=== PATIENT | female | born 1985 | race African-American/Black ===

== ENCOUNTER 2017-04-21 16:12 | Outpatient (CLI) | payer OTHER ==
[~2017-04-21] VITALS: Ht 160 cm; Wt 77.2 kg
[~2017-04-21 16:12] MED LIST: NOHOME MEDS
[2017-04-21 16:22] VITALS: Ht 160 cm; Wt 77.2 kg
[2017-04-21] MEDS ORDERED: PRENAT PO (16:24)
[2017-04-21] MEDS ORDERED: FER325 PO (16:25)
--- NOTE | 2017-04-21 16:47 | RADRPT ---
PROCEDURE: US biophysical profile. CLINICAL INDICATION: Decreased motion. TECHNIQUE: Multiple sonographic images of the uterus were obtained. The images were revi ewed on a PACS workstation. COMPARISON: No prior studies are available for comparison. FINDINGS: There is a single live intrauterine gestation. heart rate is 136 beats per minute. The position is cephalic. The placenta is anterior grade 0 with no abruption or previa. The SINDY is 18.8 cm. (Normal = 5-20 cm.) Breathing Movement: 2 Gross Body Movement: 2 Tone: 2 Qualitative Amniotic Fluid Volume: 2 TOTAL: 8 IMPRESSION: 1. The biophysical score is 8/8. RPTAT: QQ .Otto Dupree MD, MD Date Time Electronically viewed and signed by .Otto uDpree MD, on 04/21/2017 16:46 .R/
[2017-04-21 18:11] LABS: URINE BLOOD (Dip) POC Negative (NEGATIVE)
--- NOTE | 2017-04-21 18:46 | TRIAGE ---
OB Triage Datetime Report Generated by CPN: 04/21/2017 18:46 Datetime: 04/21/2017 16:31 Assessment Type: Triage Maternal Assessment Level of Consciousness: Fully Conscious DTR's/Clonus: DTRs 2+; No Clonus Headache: Denies Blurred Vision: No Respiratory Effort: Unlabored; Regular Rhythm; Equal Expansion Breath Sounds, Left: Clear and Equal Breath Sounds, Right: Clear and Equal Nausea/Vomiting: Denies RUQ Epigastric Pain: Denies Lower Extremities Edema: Bilateral Lower Extremities Degree: 1+ Upper Extremities Edema: None Facial Edema: None Fall Risk Assessment History of Falling: (0) No Secondary Diagnosis: (0) No Ambulatory Aid: (0) Bedrest/Nurse Assist IV Therapy: (0) No Gait: (0) Normal/Bedrest/Immobile Mental Status: (0) Oriented to Own Ability Fall Score: 0 Fall Risk Score Definition: No Risk: No action required Datetime: 04/21/2017 16:30 Labor Evaluation Frequency: OCCASIONAL Monitor Mode: External Duration (sec)2399: 40 Quality: Mild Pattern: Normal: <= 5 Contractions in 10 Minutes Resting Tone [place]: Relaxed Heart Rate FHR Baseline Rate: 135 Monitor Mode: External US FHR Baseline Changes: No Baseline Change Variability: Moderate 6-25 bpm Accelerations: 10X10 Decelerations: Variable Comments: APPROPRIATE FOR GA Pain Assessment Pain Scale: 0 Pain Presence: None/Denies Pain Type: N/A Datetime: 04/21/2017 16:29 EGA: 31.3 Datetime: 04/21/2017 16:26 Time of Arrival: 04/21/2017 16:00 Arrived By: Ambulatory Arrived From: [facility] Chief Complaint: decreased movements Movement: Decreased Contractions: Denies/Absent Rupture of Membranes: Denies Vaginal Bleeding: None Vaginal Discharge: Denies Recent Sexual Intercouse: Denies Abdominal Trauma: Not Applicable Patient Complaints: None Time Provider Notified: 04/21/2017 17:02 Provider Notified: DR TERRY Initial Plan: NST, P
--- NOTE | 2017-04-21 18:48 | CONS ---
Date/Time of Note Date/Time of Note DATE: 04/21/17 TIME: 18:42 Consultation Date/Type/Reason Admit Date/Time April 21, 2070 OB triage consult Reason for Consultation This patient is a 31 years old 3 para 0 1 miscarriage 1 with estimated date of confinement of June 20, 2017 which makes her 31 weeks and 3 days today. She came to triage complaining of low movement On examination she is a well-developed well-nourished lady . Her general vital signs are normal with blood pressure of 109/66, pulse rate 85 respiration 18,, and temperature 98.7 On examination of abdomen she has only occasional contractions heart tone is normal with fairly good variability no deceleration. Laboratory Tests Test 04/21/17 18:16 Bedside Urine pH (LAB) 7.0 Bedside Urine Protein (LAB) Negative Bedside Urine Glucose (UA) Negative Bedside Urine Ketones (LAB) Negative Bedside Urine Blood Negative Bedside Urine Nitrite (LAB) Negative Bedside Urine Leukocyte Esterase (L Negative Constitutional: No chills, No diaphoresis, No disoriented, No febrile, No improved, No no complaints, No other, No poor po, No requiring IVF, No requiring O2 Eyes: No discharge, No no complaints, No other, No pain, No redness, No visual change ENT: No bleeding, No congestion, No discharge, No dysphagia, No no complaints, No other, No pain, No sore throat Respiratory: No cough, No no complaints, No other, No pain, No pleuritic pain, No shortness of breath, No sputum, No wheezing Cardiovascular: No chest pain, No edema, No lightheadedness, No no complaints, No orthopenea, No other, No palpitations, No paroxysmal nocturnal dyspnea Gastrointestinal: No blood, No constipation, No decreased appetite, No diarrhea , No flatus, No nausea, No no complaints, No other, No pain, No passing stool, No vomiting Genitourinary: other (Pelvic examination was not performed due to the fact that she did not have much of the contractions), No bleeding, No discharge, No dysuria, No flank pain, No hematuria, No no complaints Musculoskeletal: other (Knee-jerk reflexes normal), No back pain, No bone/joint pain, No neck pain, No no complaints, No restricted range of motion, No swelling Skin: No bruising, No erythema, No laceration, No no complaints, No other, No pruritis, No rash, No skin lesions Neurologic: No confusion, No dizziness, No focal-weakness, No headache, No no complaints, No other, No seizure, No syncope Endocrine: No dry skin, No no complaints, No other, No polydypsia, No polyuria , No temp intolerance Additional Comments We did an ultrasound study the report was a single live intrauterine gestation with heartbeat of 136/min placenta was anterior and the SINDY was 18.8 her biophysical profile was reported 05/17 Disposition;with these positive finding reassurance given to the patient and she was discharged home to be followed in the clinic and to return in triage in case of active labor or rupture of membrane. End of dictation Social History Smoking Status: Current some day smoker Exam/Review of Systems Results Results 24 hrs Laboratory Tests Test 04/21/17 18:16 Bedside Urine pH (LAB) 7.0 Bedside Urine Protein (LAB) Negative Bedside Urine Glucose (UA) Negative Bedside Urine Ketones (LAB) Negative Bedside Urine Blood Negative Bedside Urine Nitrite (LAB) Negative Bedside Urine Leukocyte Esterase (L Negative MADELINE ISAACS MD Apr 21, 2017 18:48
== END 2017-04-21 18:24 | disposition home or self-care (01) ==
LOC: OBT 16:12 → L-D 16:13 → OBT 18:24
PROVIDERS: ATTEND Obstetrics & Gynecology
DX: O36.8130 Decreased fetal movements, third trimester, not applicable or unspecified (principal); Z3A.33 33 weeks gestation of pregnancy
CPT/HCPCS: 76818; 81003; Z7500; G0463

== ENCOUNTER 2017-06-04 09:44 | Outpatient (CLI) | payer OTHER ==
[~2017-06-04] VITALS: Ht 160 cm; Wt 83.5 kg
[2017-06-04 09:30] VITALS: BMI 32.6
[~2017-06-04 09:44] MED LIST changes: +FER325 PO; +PRENAT PO
--- NOTE | 2017-06-04 10:39 | RADRPT ---
PROCEDURE: US OB biophysical profile. CLINICAL INDICATION: decreased movements, PIH TECHNIQUE: Multiple sonographic images of the pelvis were obtained. The images were reviewed on a PACS workstation. COMPARISON: No prior studies are available for comparison. FINDINGS: There is a single viable intrauterine gestation. Cardiac activity is present with 131 beats per min [employer] [place] [place]. There is a vertex presentation. The placenta is anterior. There is no evidence of placental abruption. There is a normal amount of amniotic fluid with an SINDY = 13.3 cm. Biophysical profile: movement 2/2 tone 2/2. breathing 2/2 SINDY 2/2 Total 05/17 RPTAT: AA . IMPRESSION: Normal biophysical profile. . .Jesse Byrd MD, Date Time Electronically viewed and signed by .Jesse Byrd MD, MD on 06/04/2017 10:39 .S/
--- NOTE | 2017-06-04 10:42 | RADRPT ---
PROCEDURE: US OB. CLINICAL INDICATION: Size and dates TECHNIQUE: Multiple sonographic images of the pelvis and gravid uterus were obtained. The images were reviewed on a PACS workstation. COMPARISON: US PELVIS 06/04/2017 FINDINGS: There is a single viable intrauterine gestation. Cardiac activity is present with 152 beats per min [place]. There is a vertex presentation. The placenta is anterior. There is no evidence of placental abruption. There is a normal amount of amniotic fluid with an SINDY = 13.3 cm. Measurements were made in order to determine age. The results are as follows: BPD =9.0 cm HC =33.3 cm AC =36.3 cm FL =7.1 cm Estimated gestational age of approximately 37 weeks and 6 days based on ultrasound measurements. Clinical age: 37 weeks and 5 days. The estimated date of delivery is 06/19/17, based on ultrasound measurements. The EFW = 3565 g, 83.1%, based on LMP age. RPTAT: AA IMPRESSION: Single viable intrauterine gestation of approximately 37 weeks and 6 days based on ultrasound measu rements. .Jesse Byrd MD, MD Date Time Electronically viewed and signed by .Jesse Byrd MD, MD on 06/04/2017 10:42 .S/
[2017-06-04 10:54] LABS: BASOPHILS % 0.3 % (0.0-2.0); EOSINOPHILS # 0.3 10^3/ul (0.0-0.5); EOSINOPHILS % 2.6 % (0.0-7.0); HEMATOCRIT 29.3 % (37.0-47.0); HEMOGLOBIN 9.9 g/dl (12.0-16.0); LYMPHOCYTES # 1.9 10^3/ul (0.8-2.9); LYMPHOCYTES % 19.7 % (15.0-51.0); MEAN CORPUSCULAR HEMOGLOBIN 30.8 pg (29.0-33.0); MEAN CORPUSCULAR HGB CONC 33.8 g/dl (32.0-37.0); MEAN CORPUSCULAR VOLUME 91.3 fl (82.0-101.0); MEAN PLATELET VOLUME 10.3 fl (7.4-10.4); MONOCYTE # 0.9 10^3/ul (0.3-0.9); MONOCYTES % 9.5 % (0.0-11.0); NEUTROPHILS % 66.7 % (39.0-77.0); PLATELET COUNT 273 10^3/UL (140-415); RED BLOOD COUNT 3.21 10^6/ul (4.20-5.40); RED CELL DISTRIBUTION WIDTH 13.2 % (11.5-14.5); WHITE BLOOD COUNT 9.7 10^3/ul (4.8-10.8)
[2017-06-04 11:07] LABS: ADD UMIC YES; UR ASCORBIC ACID NEGATIVE (NEGATIVE); UR BACTERIA FEW /HPF (NONE SEEN); UR BILIRUBIN (Dip) NEGATIVE (NEGATIVE); UR BLOOD (Dip) NEGATIVE (NEGATIVE); UR CLARITY CLOUDY (CLEAR); UR COLOR YELLOW (YELLOW); UR GLUCOSE (Dip) NEGATIVE (NEGATIVE); UR KETONES (Dip) NEGATIVE (NEGATIVE); UR LEUKOCYTE ESTERASE (Dip) 1+ Leu/ul (NEGATIVE); UR MUCUS FEW /HPF (NONE SEEN); UR NITRITE (Dip) NEGATIVE (NEGATIVE); UR RBC 7 /HPF (0-5); UR SPECIFIC GRAVITY (Dip) 1.011 (1.003-1.030); UR SQUAMOUS EPITHELIAL CELL FEW /HPF (FEW); UR TOTAL PROTEIN (Dip) NEGATIVE (NEGATIVE); UR UROBILINOGEN (Dip) NEGATIVE (NEGATIVE)
--- NOTE | 2017-06-04 11:13 | PN ---
Triage Information Date/Time Reason for visit: Weeks of Gestation 37 +5 wks ga /Para Diabetes: none Hypertention: induced Additional information Patient is here to R/O PIH Objective Heart Rate: 140's Contractions: None Results/Medications Results 24 hrs Laboratory Tests Test 06/04/17 10:14 White Blood Count Pending Red Blood Count Pending Hemoglobin Pending Hematocrit Pending Mean Corpuscular Volume Pending Mean Corpuscular Hemoglobin Pending Mean Corpuscular Hemoglobin Concent Pending Red Cell Distribution Width Pending Platelet Count Pending Mean Platelet Volume Pending Imaging Results PROCEDURE: US OB biophysical profile. CLINICAL INDICATION: decreased movements, PIH TECHNIQUE: Multiple sonographic images of the pelvis were obtained. The images were reviewed on a PACS workstation. COMPARISON: No prior studies are available for comparison. FINDINGS: There is a single viable intrauterine gestation. Cardiac activity is present with 131 beats per minute. There is a vertex presentation. The placenta is anterior. There is no evidence of placental abruption. There is a normal amount of amniotic fluid with an SINDY = 13.3 cm. Biophysical profile: movement 2/2 tone 2/2. breathing 2/2 SINDY 2/2 Total 05/17 RPTAT: AA . IMPRESSION: Normal biophysical profile. . .Jesse Byrd MD, Date Time Electronically viewed and signed by .Jesse Byrd MD, on 06/04/2017 10: 39 .S/ CC: ENRRIQUE TERRY MD PROCEDURE: US OB. CLINICAL INDICATION: Size and dates TECHNIQUE: Multiple sonographic images of the pelvis and gravid uterus were obtained. The images were reviewed on a PACS workstation. COMPARISON: US PELVIS 06/04/2017 FINDINGS: There is a single viable intrauterine gestation. Cardiac activity is present with 152 beats per minute. There is a vertex presentation. The placenta is anterior. There is no evidence of placental abruption. There is a normal amount of amniotic fluid with an SINDY = 13.3 cm. Measurements were made in order to determine age. The results are as follows: BPD = 9.0 cm HC = 33.3 cm AC = 36.3 cm FL = 7.1 cm Estimated gestational age of approximately 37 weeks and 6 days based on ultrasound measurements. Clinical age: 37 weeks and 5 days. The estimated date of delivery is 06/19/17, based on ultrasound measurements. The EFW = 3565 g, 83.1%, based on LMP age. RPTAT: AA IMPRESSION: Single viable intrauterine gestation of approximately 37 weeks and 6 days based on ultrasound measurements. .Jesse Byrd MD, MD Date Time Electronically viewed and signed by .Jesse Byrd MD, MD on 06/04/2017 10: 42 Disposition: Discharge Assessment/Plan Patient was given instructions to obtain 24 hour urine protein collection She should return to triage tomorrow after the completion of 24 hour urine for repeat NST and biophysical profile ROSALIO GRAVES MD Jun 04, 2017 11:06
[2017-06-04 11:27] LABS: ALBUMIN 2.7 g/dl (3.3-4.9); ALBUMIN/GLOBULIN RATIO 1.03; CALCIUM 9.4 mg/dl (8.4-10.2); CREATININE 0.42 mg/dl (0.44-1.00); POTASSIUM 4.3 mmol/L (3.5-5.1); TOTAL PROTEIN 5.3 g/dl (6.1-8.1)
[2017-06-04 11:58] LABS: INR 0.87; PROTIME 11.8 Sec (12.2-14.2); PT RATIO 0.9
[2017-06-04 12:58] VITALS: Ht 160 cm; Wt 83.5 kg
== END 2017-06-04 13:15 | disposition home or self-care (01) ==
LOC: OBT 09:44 → L-D 09:45 → OBT 13:15
PROVIDERS: ATTEND Obstetrics & Gynecology
DX: O13.3 Gestational [pregnancy-induced] hypertension without significant proteinuria, third trimester (principal); Z3A.37 37 weeks gestation of pregnancy
CPT/HCPCS: 76815; 76818; 80053; 81001; 84560; 85025; 85384; 85610; 85730; G0463

== ENCOUNTER 2017-06-05 18:39 | Inpatient (IN) | payer OTHER ==
[~2017-06-05] VITALS: Ht 160 cm; Wt 84.0 kg
[~2017-06-05 18:39] MED LIST changes: -NOHOME MEDS
[2017-06-05 18:58] VITALS: Ht 160 cm; Wt 84.0 kg
[2017-06-05 19:02] LABS: BASOPHILS % 0.3 % (0.0-2.0); EOSINOPHILS # 0.2 10^3/ul (0.0-0.5); EOSINOPHILS % 2.4 % (0.0-7.0); HEMATOCRIT 31.2 % (37.0-47.0); HEMOGLOBIN 10.9 g/dl (12.0-16.0); LYMPHOCYTES # 1.9 10^3/ul (0.8-2.9); LYMPHOCYTES % 19.5 % (15.0-51.0); MEAN CORPUSCULAR HEMOGLOBIN 31.5 pg (29.0-33.0); MEAN CORPUSCULAR HGB CONC 34.9 g/dl (32.0-37.0); MEAN CORPUSCULAR VOLUME 90.2 fl (82.0-101.0); MEAN PLATELET VOLUME 10.3 fl (7.4-10.4); MONOCYTE # 0.7 10^3/ul (0.3-0.9); MONOCYTES % 7.4 % (0.0-11.0); NEUTROPHILS % 69.2 % (39.0-77.0); PLATELET COUNT 308 10^3/UL (140-415); RED BLOOD COUNT 3.46 10^6/ul (4.20-5.40); RED CELL DISTRIBUTION WIDTH 13.6 % (11.5-14.5); WHITE BLOOD COUNT 9.7 10^3/ul (4.8-10.8)
[2017-06-05 19:21] LABS: ALBUMIN 3.3 g/dl (3.3-4.9); ALBUMIN/GLOBULIN RATIO 0.97; CALCIUM 9.6 mg/dl (8.4-10.2); CREATININE 0.67 mg/dl (0.44-1.00); TOTAL PROTEIN 6.7 g/dl (6.1-8.1)
[2017-06-05 19:38] LABS: SCRET 0.67 mg/dl (0.44-1.00)
--- NOTE | 2017-06-05 19:51 | RADRPT ---
PROCEDURE: Obstetrical ultrasound for biophysical profile CLINICAL INDICATION: Biophysical profile. . TECHNIQUE: Obstetrical ultrasound of the uterus for biophysical profile. Transabdominal views are obtained. COMPARISON: 06/04/2017 FINDINGS: Single intrauterine gestation. Presentation: Cephalic. Placenta: Anterior. No evidence of placental abruption. No evidence of placenta previa. breathing movement = 2/2 tone = 2/2 motion = 2/2 SINDY = 2/2 SINDY = 12.7 cm heart rate: 133 beats per minute IMPRESSION: Single intrauterine gestation. Biophysical profile 05/17 RPTAT: AADD .Ayo Brewster MD, MD Date Time Electronically viewed and signed by .Ayo Brewster MD, on 06/05/2017 19:50 .B/
--- NOTE | 2017-06-05 23:10 | HP ---
Date/Time of Note Date/Time of Note DATE: 06/05/17 TIME: 23:04 OB - History Hx of Present Chief Complaint: High blood pressure Estimated Due Date: Jun 20, 2017 : 3 Para: 0 Spontaneous : 2 Therapeutic : 0 Care: Other ( records not available at this time) Obstetrical Complications: None Medical Complications: None Past Family/Social History * Past Medical, Surgical, Family and Obstetric Histories reviewed from chart. OB Admission Exam Physical Exam HEENT: WNL Heart: Rhythm Normal Lungs: Clear, Equal Abdomen: WNL Extremities: Edema Reflexes: Normal Membranes: Intact Heart Rate: 150's Accelerations: Accelerations Present Decelerations: No Decelerations Varibility: Moderate Last 72 hours Lab Results CBC & BMP 06/05/17 18:51 Liver Function Test 06/05/17 18:51 Alanine Aminotransferase (ALT/SGPT) 27 Albumin 3.3 Alkaline Phosphatase 131 H Aspartate Amino Transf (AST/SGOT) 18 Direct Bilirubin 0.00 Total Protein 6.7 # OB Assessment/Plan Other Assessment: Preeclampsia Plan: Other Other plan: Monitor BP. Obtain preneat records. Once KAYLA is confirmed, consider induction of labor. MELANI CRAWLEY MD Jun 05, 2017 23:10
[2017-06-05] MEDS ORDERED: LIDOCAINE 1% (MPF) 30 ML INJ INJ PRN (23:30)
[2017-06-05] MEDS ORDERED: MISOPROSTOL 200 MCG TAB PR PRN (23:30)
[2017-06-05] MEDS ORDERED: BUTORPHANOL 2 MG INJ IV PRN (23:30)
[2017-06-05] MEDS ORDERED: OXYTOCIN 30 UNITS/LR 500 ML IV PRN (23:30)
[2017-06-05] MEDS ORDERED: CARBOPROST 250 MCG INJ IM PRN (23:30)
[2017-06-05] MEDS ORDERED: OXYTOCIN 30 UNITS/LR 500 ML IV SCH ×2 (23:30)
[2017-06-05] MEDS ORDERED: METHYLERGONOVINE 0.2 MG INJ IM PRN (23:30)
[2017-06-05] MEDS ORDERED: LACTATED RINGER'S 1,000 ML IV PRN (23:30)
[2017-06-05] MEDS ORDERED: IBUPROFEN 600 MG TAB PO PRN (23:30)
--- NOTE | 2017-06-05 23:58 | TRIAGE ---
OB Triage Datetime Report Generated by CPN: 06/05/2017 23:58 Datetime: 06/04/2017 17:25 Vaginal Exam Dilatation (cms): 1.5 Effacement (%): 50 Station: -3 Exam By: ESTRELITA RNC Membrane Status: Intact Cervix, Consistency: Moderate Cervix, Position: Posterior Datetime: 06/04/2017 11:49 Monitor Mode: External Heart Rate FHR Baseline Rate: 130 Monitor Mode: External US FHR Baseline Changes: No Baseline Change Variability: Moderate 6-25 bpm Accelerations: 15X15 Decelerations: None Category: Category I Datetime: 06/04/2017 10:30 Labor Evaluation Frequency: 0 Monitor Mode: External Resting Tone [place]: Relaxed Heart Rate FHR Baseline Rate: 130 Monitor Mode: External US FHR Baseline Changes: No Baseline Change Variability: Moderate 6-25 bpm Accelerations: 15X15 Decelerations: None Category: Category I Datetime: 06/04/2017 09:30 Stage of : Antepartum Temperature Route: Oral Pain Assessment Pain Scale: 0 Pain Presence: None/Denies Datetime: 06/04/2017 09:29 Labor Evaluation Frequency: 0 Monitor Mode: External Resting Tone [place]: Relaxed Heart Rate FHR Baseline Rate: 140 Monitor Mode: External US FHR Baseline Changes: No Baseline Change Variability: Moderate 6-25 bpm Accelerations: 15X15 Decelerations: None Category: Category I Datetime: 06/04/2017 09:26 Assessment Type: Triage Maternal Assessment Level of Consciousness: Fully Conscious DTR's/Clonus: DTRs 2+; No Clonus Headache: Denies Blurred Vision: No Respiratory Effort: Unlabored; Regular Rhythm; Equal Expansion Breath Sounds, Left: Clear and Equal Breath Sounds, Right: Clear and Equal Nausea/Vomiting: Denies RUQ Epigastric Pain: Denies Lower Extremities Edema: None Degree: None Upper Extremities Edema: None Facial Edema: None Fall Risk Assessment History of Falling: (0) No Secondary Diagnosis: (0) No Ambulatory Aid: (0) Bedrest/Nurse Assist IV Therapy: (0) No Gait: (0) Normal/Bedrest/Immobile Mental Status: (0) Oriented to Own Ability Fall Score: 0 Fall Risk Score Definition: No Risk: No action required Datetime: 06/04/2017 09:15 Stage of : OB Triage Assessment Type: Triage Maternal Assessment Level of Consciousness: Fully Conscious DTR's/Clonus: DTRs 2+; No Clonus Headache: Denies Blurred Vision: No Respiratory Effort: Unlabored; Regular Rhythm; Equal Expansion Breath Sounds, Left: Clear and Equal Breath Sounds, Right: Clear and Equal Nausea/Vomiting: Denies RUQ Epigastric Pain: Denies Lower Extremities Edema: None Degree: None Upper Extremities Edema: None Degree: None Facial Edema: None Temperature Route: Axillary Fall Risk Assessment History of Falling: (0) No Secondary Diagnosis: (0) No Ambulatory Aid: (0) Bedrest/Nurse Assist IV Therapy: (0) No Gait: (0) Normal/Bedrest/Immobile Mental Status: (0) Oriented to Own Ability Fall Score: 0 Fall Risk Score Definition: No Risk: No action required Datetime: 06/04/2017 08:59 Time of Arrival: 06/04/2017 08:59 EGA: 37.5 Chief Complaint: FOR 24 HR URINE COLLECTION BROUGHT FROM HOME Movement: Present Contractions: Irregular Rupture of Membranes: Denies Vaginal Bleeding: None Vaginal Discharge: Denies Recent Sexual Intercouse: Denies Abdominal Trauma: Not Applicable Patient Complaints: None Initial Plan: EFM,PIH LABS,UA,BPP.EFW Datetime: 04/21/2017 17:30 Labor Evaluation Frequency: OCCASIONAL Monitor Mode: External Duration (sec)2399: 40 Quality: Mild Pattern: Normal: <= 5 Contractions in 10 Minutes Resting Tone [place]: Relaxed Heart Rate FHR Baseline Rate: 130 Monitor Mode: External US FHR Baseline Changes: No Baseline Change Variability: Moderate 6-25 bpm Accelerations: 15X15 Decelerations: None Category: Category I Datetime: 04/21/2017 16:31 Fall Score: 0 Fall Risk Score Definition: No Risk: No action required Datetime: 04/21/2017 16:29 EGA: 31.3
[2017-06-06] MEDS: LACTATED RINGER'S 1,000 ML IV SCH ×4 (00:55→21:51)
[2017-06-06 00:58] LABS: INR 0.84; PARTIAL THROMBOPLASTIN TIME 27.7 Sec (25.0-35.0); PROTIME 11.5 Sec (12.2-14.2); PT RATIO 0.9
[2017-06-06 05:37] LABS: BARBITURATES Negative (NEGATIVE); BENZODIAZEPINES Negative (NEGATIVE); CANNABINOIDS Negative (NEGATIVE); COCAINE Negative (NEGATIVE); OPIATES Negative (NEGATIVE)
[2017-06-06] MEDS ORDERED: DINOPROSTONE 10 MG VAG SUPP VAG ONE (10:00)
[2017-06-06 21:14] LABS: BASOPHILS % 0.3 % (0.0-2.0); EOSINOPHILS # 0.2 10^3/ul (0.0-0.5); HEMATOCRIT 30.4 % (37.0-47.0); HEMOGLOBIN 10.4 g/dl (12.0-16.0); LYMPHOCYTES # 1.7 10^3/ul (0.8-2.9); LYMPHOCYTES % 11.8 % (15.0-51.0); MEAN CORPUSCULAR HEMOGLOBIN 30.9 pg (29.0-33.0); MEAN CORPUSCULAR HGB CONC 34.2 g/dl (32.0-37.0); MEAN CORPUSCULAR VOLUME 90.2 fl (82.0-101.0); MEAN PLATELET VOLUME 10.5 fl (7.4-10.4); MONOCYTE # 1.1 10^3/ul (0.3-0.9); MONOCYTES % 7.7 % (0.0-11.0); NUCLEATED RED BLOOD CELLS% 0.1 /100WBC (0.0-0.0); PLATELET COUNT 286 10^3/UL (140-415); RED BLOOD COUNT 3.37 10^6/ul (4.20-5.40); RED CELL DISTRIBUTION WIDTH 13.5 % (11.5-14.5); WHITE BLOOD COUNT 14.3 10^3/ul (4.8-10.8)
[2017-06-06 21:36] LABS: ALBUMIN 3.1 g/dl (3.3-4.9); ALBUMIN/GLOBULIN RATIO 1.03; BILIRUBIN,INDIRECT 0.1 mg/dl (0-1.1); BILIRUBIN,TOTAL 0.1 mg/dl (0.2-1.3); CREATININE 0.42 mg/dl (0.44-1.00); POTASSIUM 3.9 mmol/L (3.5-5.1); TOTAL PROTEIN 6.1 g/dl (6.1-8.1); URIC ACID 4.3 mg/dl (3.1-7.9)
[2017-06-07] MEDS: LACTATED RINGER'S 1,000 ML IV SCH ×3 (04:57→19:52)
[2017-06-07] MEDS ORDERED: METHYLERGONOVINE 0.2 MG INJ ONE (07:00)
[2017-06-07] MEDS ORDERED: OXYTOCIN 30 UNITS/LR 500 ML IV SCH ×2 (11:30→21:00)
--- NOTE | 2017-06-07 11:48 | PN ---
Date/Time of Note Date/Time of Note DATE: 06/06/17 TIME: 11:39 OB Subjective Subjective Subjective 06/06/17 PATIENT WAS ADMITTED FOR MILD PREECLAMPSIA AND FOR INDUCTION OF LABOR AT THIS TIME. SHE IS STABLE AT TERM CERVIDIL WAS APPLIED DUE TO POOR PENNY SCORE ENRRIQUE TERRY MD Jun 07, 2017 11:48
--- NOTE | 2017-06-07 11:50 | PN ---
Date/Time of Note Date/Time of Note DATE: 06/07/17 TIME: 11:48 OB Subjective Subjective Subjective DOING WELL BP NOT ELEVATED NO SYMPTOMS OF HEADACHES, DIZZINESS NOR EPIGASTRIC PAIN. NO LEG EDEMA. PATIENT HAD PROTEINURIA. PROGRESSING SLOWLY, NOW ON PITOCIN CERVIX I CM -2 STATION MB INTACT CEPHALIC ENRRIQUE TERRY MD Jun 07, 2017 11:50
[2017-06-07] MEDS ORDERED: MAGNESIUM SULFATE 4 GM/100 ML 100 ML ONE (20:47)
--- NOTE | 2017-06-07 20:59 | OPR ---
Date/Time of Note Date/Time of Note DATE: 06/07/17 TIME: 20:57 Operative Report Procedure Date: Jun 07, 2017 Preoperative Diagnosis 38 WEEKS PREECLAMPSIA NO PROGRESS OF LABOR Postoperative Diagnosis SAME Operation Performed PRIMARY LOW SEGMENT TRANSVERSE C/S Surgeon: ENRRIQUE TERRY MD Sheep Shearer: CONRADO MEMBRENO MD Anesthesiologist: SIDNEY PATEL VERONICA MD Jun 07, 2017 20:59
[2017-06-07] MEDS ORDERED: METHYLERGONOVINE 0.2 MG TAB PO PRN (21:00)
[2017-06-07] MEDS ORDERED: OXYTOCIN 30 UNITS/LR 500 ML IV PRN ×2 (21:00)
[2017-06-07] MEDS ORDERED: CARBOPROST 250 MCG INJ IM PRN ×2 (21:00)
[2017-06-07] MEDS ORDERED: ACETAMINOPHEN 325 MG TAB PO PRN (21:00)
[2017-06-07] MEDS ORDERED: METHYLERGONOVINE 0.2 MG INJ IM PRN ×2 (21:00)
[2017-06-07] MEDS ORDERED: LANOLIN 7 GM TUBE TOP PRN (21:00)
[2017-06-07] MEDS ORDERED: MISOPROSTOL 200 MCG TAB PR PRN ×2 (21:00)
[2017-06-07] MEDS ORDERED: MAGNESIUM SULFATE 4 GM/100 ML 100 ML IVPB ONE (21:00)
[2017-06-07] MEDS ORDERED: LABETALOL HCL 20MG INJ IV PRN (21:00)
[2017-06-07] MEDS: CEFAZOLIN 2 GM/50 ML (PMX) 50 ML IV SCH (21:00)
[2017-06-07] MEDS ORDERED: MAGNESIUM SULFATE 20 GM/500 ML 500 ML IV SCH ×2 (21:00→21:30)
[2017-06-07] MEDS ORDERED: NA PHOSPHATE/BIPHOS 133 ML ENEMA PR PRN (21:00)
[2017-06-07] MEDS ORDERED: CEFAZOLIN 2 GM/50 ML (PMX) 50 ML IV SCH (21:00)
[2017-06-07] MEDS: MAGNESIUM SULFATE 20 GM/500 ML 500 ML IV SCH (21:25)
[2017-06-07] MEDS ORDERED: KETOROLAC 30 MG INJ IV PRN ×3 (21:30→22:00)
[2017-06-07] MEDS ORDERED: KETOROLAC 30 MG INJ IV SCH (21:30)
[2017-06-07] MEDS: LABETALOL 100 MG TAB PO SCH ×2 (21:30)
[2017-06-07] MEDS ORDERED: MAGNESIUM SULFATE 1 GM/D5W 100 ML IVPB SCH (21:30)
[2017-06-07] MEDS ORDERED: FENTAnyl 50 MCG/ML VIAL IV PRN ×2 (22:00)
[2017-06-07] MEDS ORDERED: HYDROmorphONE (0.2 MG/ML) 10ML SYG IV PRN ×3 (22:00)
[2017-06-07] MEDS ORDERED: DIPHENHYDRAMINE 50 MG INJ IV PRN ×2 (22:00)
[2017-06-07] MEDS ORDERED: HYDROmorphONE 1 MG/ML SYG IV PRN ×2 (22:00)
[2017-06-07] MEDS ORDERED: MEPERIDINE 25 MG INJ IV PRN (22:00)
[2017-06-07] MEDS ORDERED: ONDANSETRON 4 MG INJ IV PRN ×2 (22:00)
[2017-06-07] MEDS ORDERED: METOCLOPRAMIDE 10 MG INJ IV PRN (22:00)
[2017-06-07] MEDS ORDERED: IBUPROFEN 800 MG TAB PO SCH (22:00)
[2017-06-07] MEDS ORDERED: NALOXONE (0.4 MG/ML) INJ IV PRN (22:00)
--- NOTE | 2017-06-07 22:08 | PREOPHP ---
DATE OF ADMISSION: 06/05/2017 HISTORY OF PRESENT ILLNESS: This is a 31 years old Black female, 3, para 0, 1, 1, and 1 ectopic with no vaginal deliveries, EDC was 06/20/2017. 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 She has tried cocaine as well only once. She stopped everything after the first trimester. 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 She otherwise had an uneventful and she gained about 25 pounds since she was admitted in my practice and she came in the second trimester. This patient had a normal 3 hour GTT. She was slightly anemic at the beginning that got better after the treatments with iron. She was admitted over the weekend while I was away back due to preeclampsia with proteinuria of over 500 with blood pressures that were at the beginning about 110/60, now what 144/86, with mild preeclampsia. She had no headaches. No dizziness. No epigastric pain. She was becoming swollen with edema. Normal reflexes. She was being induced for 36 hours with no progress of the dilatation of the cervix or progress of descent of the presentation. An ultrasound revealed the baby being about 7 pounds. The problem is the patient is not progressing with the cervical dilatation. After many hours of labor she is only 1 cm with effacement that is 80 percent, -2. The patient was offered a section because the blood pressure started climbing up to 144/86, and not being even active. For no progress of labor and mild preeclampsia we decided to put her on magnesium sulfate and to deliver her by section. PAST MEDICAL HISTORY: She has had the female circumcision and ethanol abuse. Smoking as well. ALLERGIES: SHE IS NOT ALLERGIC TO ANY MEDICATION. SOCIAL HISTORY: She has not drink at this time during the time that she had been admitted in my practice. FAMILY HISTORY: Father with hypertension. PHYSICAL EXAMINATION: VITAL SIGNS: The patient is conscious, stable. Weight is 185 pounds. Blood pressure 124/86. HEAD AND NECK: Normal. CHEST: Clear. HEART: Normal sinus rhythm. LUNGS: Clear. BREASTS: Soft, nontender no masses. ABDOMEN: Soft. UTERUS: Uterus at term. PELVIC: Normal external genitalia. The scar tissue around the external genitalia were there is absent clitoris and scar tissue. The cervix is 1 cm, 70 percent effaced, -2. Membranes intact. EXTREMITIES: Normal. The reflexes are 2 plus leg edema. DIAGNOSES: 1. 38 weeks . 2. Mild preeclampsia 3. No progress of induction of labor. 4. Previous female circumcision. PLAN: She is undergoing a primary section. She has been advised of the possible risks and possible complications of the procedure with alternatives and options. Written information was provided. She had no more questions, and agreed to go ahead with the procedure with full understanding and no more questions. Dictated By: Charlotte Santa MD /marla/ashley /Document#: [id number]
[2017-06-07] MEDS ORDERED: morphine SULFATE/PF (10 MG/10 ML) INJ ONE (23:01)
[2017-06-07] MEDS ORDERED: PHENYLephrine (100 MCG/ML) 5ML SYG ONE ×2 (23:02→23:33)
[2017-06-08] VITALS (19 sets, daily range): BP systolic 96–144; BP diastolic 57–87; PULSE 74–98; RESP 17–19
[2017-06-08] MEDS: OXYTOCIN 30 UNITS/LR 500 ML IV SCH ×5 (00:44→20:59)
--- NOTE | 2017-06-08 01:20 | OPR ---
DATE OF OPERATION: 06/07/2017 PREOPERATIVE DIAGNOSIS: Term with preeclampsia, no progress of labor. POSTOPERATIVE DIAGNOSIS: Term with preeclampsia, no progress of labor. PROCEDURE: Primary low segment transverse section. SURGEON: Charlotte Santa MD ANESTHESIOLOGIST: Temo Buitrago MD ANESTHESIA: Spinal. DESCRIPTION OF PROCEDURE: The patient was given a spinal anesthesia, placed in the supine position. The abdomen was prepped and draped and a Snyder catheter was placed in the bladder. A transverse incision was made 2 cm above the pubic bone. The abdomen was opened in layers without difficulty. The abdominal cavity was reached. The lower uterine segment was identified and a bladder flap was made, then we use the Riley retractor. The uterus was opened in the midline. The incision was increased laterally on either side for about 3 inches. The baby's head was delivered, followed by the body. There was a cord around the neck that was tight and it was passed over the head. The baby was delivered was, it was a baby girl. score of 9. The cord was clamped and cut. The baby was handed over to the neonatology team. The cord blood was obtained and the placenta was removed. The uterus was swabbed out and closed in 2 layers using number 1 Monocryl continuous suture imbedding the first line of suture and hemostasis was good. Interrupted sutures with a mesh 0-chromic were used and the abdomen was cleaned out of blood products. Both tubes and ovaries were normal. The uterus had a small fibroid on top of the fundus and a piece of Interceed was left on the area of the incision for prevention of adhesions. The peritoneum was closed with a 2-0 Vicryl suture, the fascia was closed with an 0-PDS loop suture, the subcutaneous tissue was closed with a 2-0 Vicryl, and 3-0 Monocryl subcuticular to the skin. Steri-Strips and Dermabond were used. The patient tolerated the procedure well and left the OR awake and stable. Sponge counts and instrument counts were correct. Intravenous antibiotics were given for prophylaxis. Blood loss was approximately 600 mL and the urine was clear at the end of the procedure. Dictated By: hCarlotte Santa MD /marla/deya /Document#: [id number]
[2017-06-08] MEDS: SENNA/DOCUSATE NA (8.6MG/50MG) TAB PO SCH ×3 (02:10→21:29)
[2017-06-08] MEDS: LACTATED RINGER'S 1,000 ML IV SCH ×4 (02:11→20:59)
[2017-06-08] MEDS: KETOROLAC 30 MG INJ IV SCH ×4 (02:16→20:04)
[2017-06-08] MEDS: CEFAZOLIN 2 GM/50 ML (PMX) 50 ML IV SCH ×3 (05:06→21:28)
[2017-06-08] MEDS ORDERED: OXYTOCIN 30 UNITS/LR 500 ML BAG IV ONE (07:00)
[2017-06-08] MEDS: LABETALOL 100 MG TAB PO SCH ×4 (09:00→21:33)
--- NOTE | 2017-06-08 09:14 | CONS ---
Date/Time of Note Date/Time of Note DATE: 06/08/17 TIME: 09:13 Consultation Date/Type/Reason Admit Date/Time Jun 05, 2017 at 23:30 Initial Consult Date 06/08/17 Type of Consultation: Anesthesiology Reason for Consultation follow up 24 HR Interval Summary Free Text/Dictation Pt seen and examined at bedside is POD#1 s/p primary c/s due to failure to progress. Pt received spinal duramorph for post-op pain control and states her pain is controlled adequately. No N/V/D/C/CARBAJAL/Numbness in extremities. Will continue to follow. Exam/Review of Systems Vital Signs Vitals Vital Signs Date Time Temp Pulse Resp B/P Pulse Ox O2 Delivery O2 Flow Rate FiO2 06/08/17 06:20 84 18 125/82 Room Air 06/08/17 04:00 98 21 06/08/17 03:20 98.1 Intake and Output 06/07/17 06/07/17 06/08/17 15:00 23:00 07:00 Intake Total 750 ml 1192 ml 2725 ml Output Total 2050 ml 1173 ml Balance 750 ml -858 ml 1552 ml Results Result Diagram: 06/06/17 2100 06/06/17 2100 Medications Medications Current Medications Lactated Ringer's 1,000 ml @ 125 mls/hr Q8H IV Last administered on 06/08/17 05:46; Admin Dose 125 MLS/HR; Start 06/07/17 at 20:59 Cefazolin Sodium/ Dextrose 50 ml @ 100 mls/hr Q8H IV Last administered on 06/08 05:06; Admin Dose 100 MLS/HR; Start 06/07/17 at 21:00; Stop 06/08/17 at 13 :29 Oxytocin/Lactated Ringer's 500 ml @ 100 mls/hr Q5H IV Last administered on 00:44; Admin Dose 125 MLS/HR; Start 06/07/17 at 20:59 Methylergonovine Maleate (Methergine) 0.2 mg Q6H PRN PO VAGINAL BLEEDING; Start 06/07/17 at 21:00 Acetaminophen/ Hydrocodone Bitart ([place] (5/325)) 1 tab Q4H PRN PO PAIN LEVEL 4 -6; Start 06/07/17 at 21:00 Acetaminophen/ Hydrocodone Bitart ([place] (5/325)) 2 tab Q4H PRN PO PAIN LEVEL 7 -10; Start 06/07/17 at 21:00 Ibuprofen (Motrin) 800 mg Q8 PO ; Start 06/07/17 at 22:00; Status Future Hold Simethicone (Mylicon) 160 mg Q8H PRN PO DISTENSION/GAS/BLOATING; Start at 21:00 Senna/Docusate Sodium (Senokot-S) 1 tab BID PO ; Start 06/07/17 at 21:00 Sodium Biphosphate/ Sodium Phosphate (Fleet Enema) 133 ml DAILY PRN CO CONSTIPATION; Start 06/07/17 at 21:00 Diphtheria/ Tetanus/Acell Pertussis 0.5 ml 0.5 ml ONCE ONCE IM* ; Start 06/10/17 at 09:00; Stop 06/10/17 at 09:01 Oxytocin/Lactated Ringer's 500 ml @ 0 mls/hr ONCE PRN IV For Hemorrhage Management; Start 06/07/17 at 21:00 Methylergonovine Maleate (Methergine) 0.2 mg ONCE PRN IM VAGINAL BLEEDING; Start 06/07/17 at 21:00 Carboprost Tromethamine (Hemabate) 250 mcg ONCE PRN IM VAGINAL BLEEDING; Start 06/07/17 at 21:00 Misoprostol (Cytotec) 1,000 mcg ONCE PRN CO VAGINAL BLEEDING; Start 06/07/17 at 21:00 Labetalol HCl (Normodyne) 100 mg BID PO ; Start 06/07/17 at 21:30 Labetalol HCl 200 mg 200 mg BID PO ; Start 06/07/17 at 21:30 Magnesium Sulfate (Magnesium Sulfate 20 Gm/500 ml) 500 ml @ 25 mls/hr Q20H IV Last administered on 06/07/17t 21:25; Admin Dose 50 MLS/HR; Start 06/07/17 at 21 :20 Naloxone HCl (Narcan) 0.1 mg Q2M PRN IV FOR RESP RATE 8 OR LESS; Start at 22:00; Stop 06/08/17 at 21:59 Hydromorphone HCl (Dilaudid) 0.2 mg Q3H PRN IV PAIN LEVEL 1-5; Start 06/07/17 at 22:00; Stop 06/08/17 at 21:59 Hydromorphone HCl (Dilaudid) 0.4 mg Q3H PRN IV PAIN LEVEL 6-10; Start 06/07/17 at 22:00; Stop 06/08/17 at 21:59 Diphenhydramine HCl (Benadryl) 25 mg Q6H PRN IV ITCHING; Start 06/07/17 at 22: 00; Stop 06/08/17 at 21:59 Ondansetron HCl (Zofran Inj) 4 mg Q6H PRN IV NAUSEA AND/OR VOMITING; Start at 22:00; Stop 06/08/17 at 21:59 Ketorolac Tromethamine (Toradol) 30 mg Q6H IV Last administered on 06/08/17t 02 :16; Admin Dose 30 MG; Start 06/08/17 at 02:00; Stop 06/11/17 at 01:59 SIDNEY PATEL Jun 08, 2017 09:14
[2017-06-08 11:57] LABS: PT RATIO 0.9
[2017-06-08 12:14] LABS: BASOPHILS % 0.3 % (0.0-2.0); EOSINOPHILS # 0.2 10^3/ul (0.0-0.5); EOSINOPHILS % 1.5 % (0.0-7.0); HEMATOCRIT 22.7 % (37.0-47.0); HEMOGLOBIN 7.8 g/dl (12.0-16.0); LYMPHOCYTES # 1.3 10^3/ul (0.8-2.9); LYMPHOCYTES % 12.2 % (15.0-51.0); MEAN CORPUSCULAR HEMOGLOBIN 31.3 pg (29.0-33.0); MEAN CORPUSCULAR HGB CONC 34.4 g/dl (32.0-37.0); MEAN CORPUSCULAR VOLUME 91.2 fl (82.0-101.0); MEAN PLATELET VOLUME 10.6 fl (7.4-10.4); MONOCYTES % 9.4 % (0.0-11.0); NEUTROPHILS % 75.7 % (39.0-77.0); PLATELET COUNT 241 10^3/UL (140-415); RED BLOOD COUNT 2.49 10^6/ul (4.20-5.40); RED CELL DISTRIBUTION WIDTH 13.7 % (11.5-14.5); WHITE BLOOD COUNT 10.8 10^3/ul (4.8-10.8)
[2017-06-08 12:16] LABS: INR 0.87; PARTIAL THROMBOPLASTIN TIME 31.8 Sec (25.0-35.0); PROTIME 11.8 Sec (12.2-14.2)
[2017-06-08 13:25] LABS: FIBRIN SPLIT PRODUCT <10 ug/ml (<10)
[2017-06-08] MEDS: MAGNESIUM SULFATE 20 GM/500 ML 500 ML IV SCH (15:59)
[2017-06-09] VITALS: BP 122/72; PULSE 85; RESP 19
[2017-06-09] MEDS: OXYTOCIN 30 UNITS/LR 500 ML IV SCH ×4 (01:59→23:16)
[2017-06-09] MEDS: KETOROLAC 30 MG INJ IV SCH ×4 (02:00→21:28)
[2017-06-09] MEDS: HYDROCODONE/APAP (5/325) TAB PO PRN ×3 (02:47→18:12)
[2017-06-09 04:00] VITALS: BP 121/52; PULSE 93; RESP 18
[2017-06-09] MEDS: LACTATED RINGER'S 1,000 ML IV SCH (04:59)
[2017-06-09 08:00] VITALS: BP 135/77; PULSE 62; RESP 18
[2017-06-09] MEDS: LABETALOL 100 MG TAB PO SCH ×4 (08:52→21:00)
[2017-06-09] MEDS: SENNA/DOCUSATE NA (8.6MG/50MG) TAB PO SCH ×2 (08:54→21:27)
--- NOTE | 2017-06-09 11:24 | PN ---
Date/Time of Note Date/Time of Note DATE: 06/09/17 TIME: 11:22 Assessment/Plan Lines/Catheters IV Catheter Type (from Nrsg): Saline Lock Subjective 24 Hr Interval Summary day 2 post c/s afebrile , feels good. no headaches, dizziness or epigastric pain. leg edema 2 + reflexes 2+ Constitutional: BM, ambulates, flatus, improved, no complaints, urine output Feeding: advancing diet Pain Control: well controlled Detailed Summary Eyes: no complaints ENT: no complaints Respiratory: no complaints Cardiovascular: no complaints Gastrointestinal: no complaints Genitourinary: no complaints Musculoskeletal: no complaints Skin: no complaints Neurologic: no complaints Endocrine: no complaints Lymphatic: no complaints Psychological: nl mood/affect, no complaints Immunologic: no complaints Exam/Review of Systems Vital Signs Vitals Vital Signs Date Time Temp Pulse Resp B/P Pulse Ox O2 Delivery O2 Flow Rate FiO2 06/09/17 08:00 98.2 62 18 135/77 Room Air 06/08/17 04:00 98 21 Intake and Output 06/08/17 06/08/17 06/09/17 15:00 23:00 07:00 Intake Total 875 ml 550 ml 300 ml Output Total 1400 ml 1900 ml 1400 ml Balance -525 ml -1350 ml -1100 ml Exam Constitutional: alert, oriented, well developed Psych: nl mood/affect, no complaints Head: atraumatic, normocephalic Eyes: EOMI, nl conjunctiva, nl lids, nl sclera ENMT: mucosa pink and moist, nl external ears & nose, nl lips & teeth, nl nasal mucosa & septum Neck: non-tender, supple Respiratory: clear to auscultation, normal air movement Cardiovascular: nl pulses, regular rate and rhythm Gastrointestinal: nl liver, spleen, non-tender, soft Musculoskeletal: nl extremities to inspection, nl gait and stance Extremities: normal pulses Neurological: DIRECTOR OF EARLY CHILDHOOD EDUCATION II-XII intact, nl mental status, nl speech, nl strength Skin: nl turgor, rash or lesions Lymph: nl lymph nodes Results Result Diagram: 06/08/17 1043 06/06/17 2100 ENRRIQUE TERRY MD Jun 09, 2017 11:24
[2017-06-09] MEDS ORDERED: BISACODYL (EC) 5 MG TAB PO ONE (11:30)
[2017-06-09 12:00] VITALS: BP 126/66; PULSE 77; RESP 18
[2017-06-09 16:00] VITALS: BP 118/59; PULSE 58; RESP 18
[2017-06-09 20:00] VITALS: BP 118/56; PULSE 75; RESP 17
[2017-06-10 04:05] VITALS: BP 132/70; PULSE 80; RESP 19
[2017-06-10] MEDS: KETOROLAC 30 MG INJ IV SCH ×4 (05:08→23:00)
[2017-06-10 08:18] VITALS: BP 133/73; PULSE 76; RESP 18
[2017-06-10] MEDS: LABETALOL 100 MG TAB PO SCH ×4 (09:00→21:12)
[2017-06-10] MEDS ORDERED: DIPHTH/TET/ACEL PERTUSS (ADULT) 0.5 ML VIAL IM* ONE (09:00)
[2017-06-10 09:11] LABS: ABNORMAL IP MESSAGE 1; HEMATOCRIT 19.8 % (37.0-47.0); MEAN CORPUSCULAR HEMOGLOBIN 29.7 pg (29.0-33.0); MEAN CORPUSCULAR HGB CONC 31.8 g/dl (32.0-37.0); MEAN CORPUSCULAR VOLUME 93.4 fl (82.0-101.0); PLATELET COUNT 306 10^3/UL (140-415); RED BLOOD COUNT 2.12 10^6/ul (4.20-5.40); RED CELL DISTRIBUTION WIDTH 14.2 % (11.5-14.5); WHITE BLOOD COUNT 9.3 10^3/ul (4.8-10.8)
[2017-06-10] MEDS: SENNA/DOCUSATE NA (8.6MG/50MG) TAB PO SCH ×2 (09:23→21:10)
[2017-06-10 09:33] LABS: POSITIVE DIFF @See below
[2017-06-10 09:37] LABS: HEMOGLOBIN 6.3 g/dl (12.0-16.0)
[2017-06-10 11:14] LABS: ANISOCYTOSIS 1+ (0-0); EOSINOPHILS % (M) 3 % (0-7); GIANT THROMBO% (M) 2 % (0-0); MONOCYTES % (M) 4 % (0-11); MYELOCYTES % (M) 2 % (0-0); PLATELET ESTIMATE NORMAL; POLYCHROMASIA 1+ (0-0)
[2017-06-10] MEDS: HYDROCODONE/APAP (5/325) TAB PO PRN ×2 (13:22→23:51)
--- NOTE | 2017-06-10 13:25 | PN ---
Date/Time of Note Date/Time of Note DATE: 06/10/17 TIME: 13:23 Assessment/Plan Lines/Catheters IV Catheter Type (from Nrsg): Peripheral IV Subjective 24 Hr Interval Summary feels good , just very tired. hemoglobin is below 7 for which she will get 2 units of pack cells. incision healing good, passing gases with toleration of diet. Detailed Summary Eyes: no complaints ENT: no complaints Respiratory: no complaints Cardiovascular: no complaints Gastrointestinal: no complaints Genitourinary: no complaints Musculoskeletal: no complaints Skin: no complaints Neurologic: no complaints Endocrine: no complaints Lymphatic: no complaints Psychological: nl mood/affect, no complaints Immunologic: no complaints Exam/Review of Systems Vital Signs Vitals Vital Signs Date Time Temp Pulse Resp B/P Pulse Ox O2 Delivery O2 Flow Rate FiO2 06/10/17 08:18 99.0 76 18 133/73 Room Air 06/08/17 04:00 98 21 Exam Constitutional: alert, oriented, well developed Psych: nl mood/affect, no complaints Head: atraumatic, normocephalic Eyes: EOMI, nl conjunctiva, nl lids, nl sclera ENMT: mucosa pink and moist, nl external ears & nose, nl lips & teeth, nl nasal mucosa & septum Neck: non-tender, supple Respiratory: clear to auscultation, normal air movement Cardiovascular: nl pulses, regular rate and rhythm Gastrointestinal: nl liver, spleen, non-tender, soft Musculoskeletal: nl extremities to inspection, nl gait and stance Extremities: normal pulses Neurological: MANAGER HEMATOLOGY II-XII intact, nl mental status, nl speech, nl strength Skin: nl turgor, rash or lesions Lymph: nl lymph nodes Results Result Diagram: 06/10/1718 06/06/17 2100 ENRRIQUE TERRY MD Jun 10, 2017 13:25
[2017-06-10 16:00] VITALS: BP 124/72; PULSE 66; RESP 18
[2017-06-10 20:00] VITALS: BP 139/40; PULSE 74; RESP 20
[2017-06-11 04:22] VITALS: BP 146/76; PULSE 60; RESP 20
[2017-06-11] MEDS: HYDROCODONE/APAP (5/325) TAB PO PRN ×3 (04:22→15:12)
[2017-06-11 08:15] VITALS: BP 135/65; PULSE 66; RESP 18
[2017-06-11] MEDS: SENNA/DOCUSATE NA (8.6MG/50MG) TAB PO SCH (08:39)
[2017-06-11] MEDS: LABETALOL 100 MG TAB PO SCH ×2 (08:39→09:00)
[2017-06-11 09:27] LABS: BASOPHILS % 0.4 % (0.0-2.0); EOSINOPHILS # 0.5 10^3/ul (0.0-0.5); EOSINOPHILS % 4.9 % (0.0-7.0); HEMATOCRIT 28.7 % (37.0-47.0); HEMOGLOBIN 9.4 g/dl (12.0-16.0); LYMPHOCYTES % 18.4 % (15.0-51.0); MEAN CORPUSCULAR HEMOGLOBIN 30.4 pg (29.0-33.0); MEAN CORPUSCULAR HGB CONC 32.8 g/dl (32.0-37.0); MEAN CORPUSCULAR VOLUME 92.9 fl (82.0-101.0); MEAN PLATELET VOLUME 9.5 fl (7.4-10.4); MONOCYTE # 0.7 10^3/ul (0.3-0.9); MONOCYTES % 6.8 % (0.0-11.0); NEUTROPHILS % 67.7 % (39.0-77.0); NUCLEATED RED BLOOD CELLS% 0.3 /100WBC (0.0-0.0); PLATELET COUNT 340 10^3/UL (140-415); RED BLOOD COUNT 3.09 10^6/ul (4.20-5.40); RED CELL DISTRIBUTION WIDTH 14.7 % (11.5-14.5); WHITE BLOOD COUNT 10.9 10^3/ul (4.8-10.8)
--- NOTE | 2017-06-11 13:22 | DS ---
Date/Time of Note Date/Time of Note DATE: 06/11/17 TIME: 13:18 Obstetrical Discharge Record Final Diagnosis Final Diagnosis: Term delivered Section Section: Primary Complications Augmentation: No Tocolytics: Magnesium Sulfate Rupture of Membranes: No Gestational Age at Rupture .. . .This patient was admitted due to high blood pressure and underwent a section today's the fourth day of her delivery her blood pressure is under fairly good control her hemoglobin was originally 6.3 came up to 9.4 today she is doing fairly well and is discharged to be followed in the clinic Condition on Discharge Physical Assessment Voiding: Yes Bowel Movement: Yes Breast: Soft, non-tender Fundus: Firm Abdomen and Incision: Healing well Doing Well Afebrile Ambulatory Chest Clear Breasts are soft , Nipples are intact Abdomen is soft Fundus is firm Moderate amount of lochia Incision is clean ,No evidence of infection No calf tenderness No ankle edema New born is doing well, Breast feeding Episiotomy: Laboratory Tests Test 06/11/17 06:49 06/11/17 08:52 Lab Scanned Report BLOOD [id number] White Blood Count 10.910^3/ul Red Blood Count 3.0910^6/ul Hemoglobin 9.4g/dl Hematocrit 28.7% Mean Corpuscular Volume 92.9fl Mean Corpuscular Hemoglobin 30.4pg Mean Corpuscular Hemoglobin Concent 32.8g/dl Red Cell Distribution Width 14.7% Platelet Count 61213^3/UL Mean Platelet Volume 9.5fl Neutrophils % 67.7% Lymphocytes % 18.4% Monocytes % 6.8% Eosinophils % 4.9% Basophils % 0.4% Nucleated Red Blood Cells % 0.3/100WBC Neutrophils # (Manual) 7.410^3/ul Lymphocytes # 2.010^3/ul Monocytes # 0.710^3/ul Eosinophils # 0.510^3/ul Basophils # 0.010^3/ul Nucleated Red Blood Cells # 0.010^3/ul Current Medications Medications (Trade) Dose Ordered Sig/Rusty Route PRN Reason Start Time Stop Time Status Last Admin Dose Admin Lactated Ringer's (Lr) 1,000 ml @ 125 mls/hr Q8H IV 06/05/17 23:22 06/07/17 21:04 DC 06/07/17 19:52 Butorphanol Tartrate (Stadol) 2 mg Q2H PRN IV PAIN 06/05/17 23:30 06/07/17 21:04 DC 06/07/17 00:40 Lidocaine 30 ml 30 ml ONCE PRN INJ EPISIOTOMY/TEARING 06/05/17 23:30 06/07/17 21:04 DC Oxytocin/Lactated Ringer's 500 ml @ 125 mls/hr ONCE -MAY REPEAT X1 IV 06/05/17 23:30 06/07/17 21:04 DC Oxytocin/Lactated Ringer's 500 ml @ 125 mls/hr ONCE IV 06/05/17 23:30 06/07/17 21:04 DC Ibuprofen 600 mg 600 mg ONCE PRN PO Mild Pain (Pain Score 1-3) 06/05/17 23:30 06/07/17 21:04 DC Lactated Ringer's 1,000 ml @ 2,000 mls/hr Q30M PRN IV PRE-EPIDURAL BOLUS 06/05/17 23:30 06/07/17 21:04 DC Oxytocin/Lactated Ringer's 500 ml @ 0 mls/hr ONCE PRN IV For Hemorrhage Management 06/05/17 23:30 06/07/17 21:04 DC Methylergonovine Maleate (Methergine) 0.2 mg ONCE PRN IM VAGINAL BLEEDING 06/05/17 23:30 06/07/17 21:04 DC Carboprost Tromethamine (Hemabate) 250 mcg ONCE PRN IM VAGINAL BLEEDING 06/05/17 23:30 06/07/17 21:04 DC Misoprostol (Cytotec) 1,000 mcg ONCE PRN NM VAGINAL BLEEDING 06/05/17 23:30 06/07/17 21:04 DC Dinoprostone 10 mg 10 mg ONCE ONCE VAG 06/06/17 10:00 06/06/17 10:08 DC 06/06/17 10:27 Oxytocin/Lactated Ringer's 500 ml @ 0 mls/hr Q0M IV 06/07/17 11:30 06/07/17 21:04 DC 06/07/17 11:40 Magnesium Sulfate 100 ml @ 200 mls/hr ONCE ONCE IVPB 06/07/17 21:00 06/07/17 21:04 DC 06/07/17 20:54 Magnesium Sulfate (Magnesium Sulfate 20 Gm/500 ml) 500 ml @ 50 mls/hr Q10H IV 06/07/17 21:00 06/07/17 21:04 DC Acetaminophen (Tylenol Tab) 650 mg Q6H PRN PO PAIN AND OR ELEVATED TEMP 06/07/17 21:00 06/07/17 21:04 DC Labetalol HCl 20 mg 20 mg PRN PRN IV ELEVATED BLOOD PRESSURE 06/07/17 21:00 06/07/17 21:04 [facility] 06/07/17 20:47 06/07/17 20:48 DC Cefazolin Sodium/ Dextrose 50 ml @ 100 mls/hr ONCE IV 06/07/17 21:00 06/07/17 21:04 DC Oxytocin/Lactated Ringer's 500 ml @ 125 mls/hr ONCE IV 06/07/17 21:00 06/07/17 21:04 DC Oxytocin/Lactated Ringer's 500 ml @ 0 mls/hr ONCE PRN IV For Hemorrhage Management 06/07/17 21:00 06/07/17 21:04 DC Methylergonovine Maleate (Methergine) 0.2 mg ONCE PRN IM VAGINAL BLEEDING 06/07/17 21:00 06/07/17 21:04 DC Carboprost Tromethamine (Hemabate) 250 mcg ONCE PRN IM VAGINAL BLEEDING 06/07/17 21:00 06/07/17 21:04 DC Misoprostol 1000 mcg 1,000 mcg ONCE PRN NM VAGINAL BLEEDING 06/07/17 21:00 06/07/17 21:04 DC Lactated Ringer's 1,000 ml @ 125 mls/hr Q8H IV 06/07/17 20:59 06/09/17 11:26 DC 06/08/17 15:57 Cefazolin Sodium/ Dextrose 50 ml @ 100 mls/hr Q8H IV 06/07/17 21:00 06/08/17 22:00 DC 06/08/17 21:28 Oxytocin/Lactated Ringer's 500 ml @ 100 mls/hr Q5H IV 06/07/17 20:59 06/09/17 23:18 DC 06/08/17 00:44 Methylergonovine Maleate (Methergine) 0.2 mg Q6H PRN PO VAGINAL BLEEDING 06/07/17 21:00 Acetaminophen/ Hydrocodone Bitart ([place] (5/325)) 1 tab Q4H PRN PO PAIN LEVEL 4-6 06/07/17 21:00 06/11/17 08:40 Acetaminophen/ Hydrocodone Bitart ([place] (5/325)) 2 tab Q4H PRN PO PAIN LEVEL 7-10 06/07/17 21:00 06/10/17 13:22 Ibuprofen (Motrin) 800 mg Q8 PO 06/07/17 22:00 Future Hold Simethicone (Mylicon) 160 mg Q8H PRN PO DISTENSION/GAS/BLOATING 06/07/17 21:00 06/09/17 02:47 Senna/Docusate Sodium (Senokot-S) 1 tab BID PO 06/07/17 21:00 06/11/17 08:39 Sodium Biphosphate/ Sodium Phosphate (Fleet Enema) 133 ml DAILY PRN NM CONSTIPATION 06/07/17 21:00 Lanolin (Jay-F-Mivgle) 1 applic BEDSIDE MEDICATION PRN TOP BEDSIDE FOR TERI TO NIPPLES 06/07/17 21:00 06/08/17 05:06 Diphtheria/ Tetanus/Acell Pertussis 0.5 ml 0.5 ml ONCE ONCE IM* 06/10/17 09:00 06/10/17 09:01 DC Oxytocin/Lactated Ringer's 500 ml @ 0 mls/hr ONCE PRN IV For Hemorrhage Management 06/07/17 21:00 Methylergonovine Maleate (Methergine) 0.2 mg ONCE PRN IM VAGINAL BLEEDING 06/07/17 21:00 Carboprost Tromethamine (Hemabate) 250 mcg ONCE PRN IM VAGINAL BLEEDING 06/07/17 21:00 Misoprostol (Cytotec) 1,000 mcg ONCE PRN NM VAGINAL BLEEDING 06/07/17 21:00 Ketorolac Tromethamine (Toradol) 30 mg Q6H PRN IV PAIN 06/07/17 21:30 06/07/17 21:30 DC Ketorolac Tromethamine 30 mg 30 mg Q6H IV 06/07/17 21:30 06/08/17 02:09 DC Magnesium Sulfate/ Dextrose (Magnesium Sulfate 1 Gm/D5W) 100 ml @ 100 mls/hr IV IVPB 06/07/17 21:30 06/07/17 21:30 DC Labetalol HCl 100 mg 100 mg BID PO 06/07/17 21:30 06/11/17 08:39 Magnesium Sulfate (Magnesium Sulfate 20 Gm/500 ml) 500 ml @ 25 mls/hr Q20H IV 06/07/17 21:30 06/08/17 21:29 Cancel Labetalol HCl 200 mg 200 mg BID PO 06/07/17 21:30 Magnesium Sulfate (Magnesium Sulfate 20 Gm/500 ml) 500 ml @ 25 mls/hr Q20H IV 06/07/17 21:20 06/08/17 20:00 DC 06/08/17 15:59 Naloxone HCl (Narcan) 0.1 mg Q2M PRN IV FOR RESP RATE 8 OR LESS 06/07/17 22:00 06/08/17 21:59 DC Ketorolac Tromethamine (Toradol) 30 mg Q6H PRN IV PAIN 06/07/17 22:00 06/08/17 21:59 Cancel Hydromorphone HCl (Dilaudid) 0.2 mg Q3H PRN IV PAIN LEVEL 1-5 06/07/17 22:00 06/08/17 21:59 DC Hydromorphone HCl (Dilaudid) 0.4 mg Q3H PRN IV PAIN LEVEL 6-10 06/07/17 22:00 06/08/17 21:59 DC Diphenhydramine HCl (Benadryl) 25 mg Q6H PRN IV ITCHING 06/07/17 22:00 06/08/17 21:59 DC Ondansetron HCl (Zofran Inj) 4 mg Q6H PRN IV NAUSEA AND/OR VOMITING 06/07/17 22:00 06/08/17 21:59 DC Hydromorphone HCl (Dilaudid (Rec)) 0.2 mg PACU ORDER PRN IV MILD PAIN LEVEL 1-3 06/07/17 22:00 06/08/17 02:00 DC Hydromorphone HCl (Dilaudid (Rec)) 0.4 mg PACU ORDER PRN IV MODERATE PAIN LEVEL 4-6 06/07/17 22:00 06/08/17 02:00 DC Hydromorphone HCl (Dilaudid (Rec)) 0.6 mg PACU ORDER PRN IV SEVERE PAIN LEVEL 7-10 06/07/17 22:00 06/08/17 02:00 DC Fentanyl (Sublimaze) 25 mcg PACU ORDER PRN IV MILD PAIN LEVEL 1-3 06/07/17 22:00 06/08/17 02:00 DC Fentanyl (Sublimaze) 50 mcg PACU ODER PRN IV MODERATE PAIN LEVEL 4-6 06/07/17 22:00 06/08/17 02:00 DC Ketorolac Tromethamine (Toradol) 30 mg PACU ORDER PRN IV FOR PAIN AFTER IV NARCOTIC MED 06/07/17 22:00 06/08/17 02:00 Cancel Ondansetron HCl (Zofran Inj) 4 mg PACU ORDER PRN IV NAUSEA AND/OR VOMITING 06/07/17 22:00 06/08/17 02:00 DC Metoclopramide HCl (Reglan) 10 mg PACU ORDER PRN IV NAUSEA AND/OR VOMITING 06/07/17 22:00 06/08/17 02:00 DC Meperidine HCl (Demerol) 25 mg PACU ORDER PRN IV POST-OP RIGORS 06/07/17 22:00 06/08/17 02:00 DC Diphenhydramine HCl (Benadryl) 25 mg PACU ORDER PRN IV PRURITUS 06/07/17 22:00 06/08/17 02:00 DC Morphine Sulfate (Duramorph) 10 mg STK-MED ONCE .ROUTE 06/07/17 23:01 06/07/17 23:02 DC Phenylephrine HCl (Vinayak-Synephrine Inj Syg) 500 mcg STK-MED ONCE .ROUTE 06/07/17 23:02 06/07/17 23:03 DC Phenylephrine HCl (Vinayak-Synephrine Inj Syg) 500 mcg STK-MED ONCE .ROUTE 06/07/17 23:33 06/07/17 23:34 DC Ketorolac Tromethamine (Toradol) 30 mg Q6H IV 06/08/17 02:00 06/10/17 05:16 DC 06/10/17 05:08 Bisacodyl (Dulcolax) 10 mg ONCE ONCE PO 06/09/17 11:30 06/09/17 11:31 DC 06/09/17 12:24 Methylergonovine Maleate (Methergine) 0.2 mg STK-MED ONCE .ROUTE 06/07/17 07:00 06/09/17 16:58 DC Ketorolac Tromethamine (Toradol) 30 mg Q6H IV 06/10/17 11:00 06/11/17 04:59 DC 06/10/17 19:09 IV Flush (NS 10 ml) (PED) SALINE LOCK ... Q8H AND PRN ADM IV 06/10/17 10:30 Oxytocin/Lactated Ringer's 30 unit STK-MED ONCE IV 06/08/17 07:00 06/10/17 16:38 DC Calf Tenderness: No Patient Condition: Good MADELINE ISAACS MD Jun 11, 2017 13:22
[2017-06-11] MEDS ORDERED: ACET500C5 PO (14:58)
[2017-06-11] MEDS ORDERED: IBUP-1542 PO (14:59)
== END 2017-06-11 15:45 | disposition home or self-care (01) | DRG 766 ==
LOC: OBT 18:39 → L-D 18:41 → OBT 23:30 → L-D 23:30 → PP1 06-08 03:08
PROVIDERS: ADMIT Obstetrics & Gynecology; ATTEND Obstetrics & Gynecology
PROC: 10D00Z1 Extraction of Products of Conception, Low, Open Approach (ICD-10-PCS; principal; 2017-06-07)
PROC: 3E0P7GC Introduction of Other Therapeutic Substance into Female Reproductive, Via Natural or Artificial Opening (ICD-10-PCS; 2017-06-07)
PROC: 30233N1 Transfusion of Nonautologous Red Blood Cells into Peripheral Vein, Percutaneous Approach (ICD-10-PCS; 2017-06-10)
DX: O14.03 Mild to moderate pre-eclampsia, third trimester (principal); N90.810 Female genital mutilation status, unspecified; O61.0 Failed medical induction of labor; Z37.0 Single live birth; Z3A.38 38 weeks gestation of pregnancy; O99.013 Anemia complicating pregnancy, third trimester
CPT/HCPCS: 36430; 76818; 80053; 80307; 82575; 83735; 84156; 84560; 85025; 85362; 85384; 85610; 85730; 86592; 86644; 86850; 86900; 86901; 86920; 87340; 90715; 94760; 99464; G0463; J0595; J0690; J1885; J2210; J2274; J2370; J2590; J3010; J3475; J7120; P9016